=== PATIENT | male | born 1970 | race African-American/Black ===

== ENCOUNTER 2017-01-15 17:42 | Emergency (ER) | payer OTHER ==
--- NOTE | 2017-01-15 17:55 | ED GI/GU/ABDOMINAL COMPLAINT ---
History of Present Illness General Chief Complaint: General Adult Stated Complaint: BIBA RLQ PAIN Source: patient Exam Limitations: no limitations Allergies Coded Allergies: No Known Allergies (01/15/17) Triage Nurses Notes Reviewed? yes HPI: THIS PATIENT is a 46-year-old male who presented to the emergency department today brought in by ambulance for evaluation of right side pain. The patient reported that approximately one hour ago he was sitting down and the pain started abruptly. He reported that the pain is a 10 out of 10, sharp, and radiates to his right lower back into his right lower abdomen. He reported nausea and multiple episodes of diarrhea. He received 10 mg of IV morphine and 4 mg of IV Zofran en route to the hospital. He reported the pain medication did not help his pain, but that his nausea had subsided. He denied any blood in the vomitus. He denied any urinary burning, urgency, frequency, or blood in the urine. He denied any constipation or diarrhea. No blood in the stool. The patient denied any fevers, chills, chest pain, or difficulty breathing. This patient has no prior abdominal surgeries and no history of kidney stones. (DARIAN WALTERS PA-C) Vital Signs & Intake/Output Vital Signs & Intake/Output ED Intake and Output 01/17 0000 01/16 1200 Intake Total Output Total 400 Balance -400 Output, Urine 400 Reconcile Medications Ondansetron (Zofran Odt) 4 MG TAB.RAPDIS 1 TAB SL TID PRN nausea Oxycodone HCl/Acetaminophen (Percocet 5-325 MG Tablet) 5 MG-325 MG TABLET 1 TAB PO BID PRN pain (ALBA DO,JOSHUA Doshi.) Past History Medical History Any Pertinent Medical History? see below for history Surgical History Surgical History: non-contributory Family History Hx Contributory? No (DARIAN WALTERS PA-C) Review of Systems Review of Systems Constitutional: Reports: no symptoms. EENTM: Reports: no symptoms. Respiratory: Reports: no symptoms. Cardiovascular: Reports: no symptoms. GI: Reports: see HPI. Genitourinary: Reports: no symptoms. Musculoskeletal: Reports: no symptoms. Skin: Reports: no symptoms. Neurological/Psychological: Reports: no symptoms. All Other Systems: Reviewed and Negative (DARIAN WALTERS PA-C) Physical Exam Physical Exam Gastrointestinal: HYPOACTIVE BOWEL SOUNDS. tYMPANIC TO PERCUSSION IN ALL 4 QUADRANTS, NONDISTENDED, SOFT. tENDERNESS TO PALPATION DIFFUSELY ACROSS THE ABDOMEN. pOSITIVE mCbURNEY'S POINT TENDERNESS. nEGATIVE rOVSING SIGN. nEGATIVE PSOAS SIGN. nO MASSES OR HERNIAS APPRECIATED. nO REBOUND OR GUARDING Comments: Well-developed well-nourished person in moderate distress HEENT: Normal EENT exam, head normocephalic, moist mucous membranes Pupils equally round and reactive to light. Neck: Supple, no lymphadenopathy Back: Normal inspection. No CVA tenderness Cardiovascular: Regular rate and rhythm with no murmurs, rubs, or gallops Respiratory: No respiratory distress. Breath sounds clear to auscultation bilaterally with no wheezes, rales, rhonchi Extremity: Normal and equal pulses Neuro: Alert oriented x3, cranial nerves II through XII grossly intact. Skin: No appreciable rash on exposed skin, skin is warm and dry. Psych: Mood and affect is normal Core Measures ACS in differential dx? No Severe Sepsis Present: No Septic Shock Present: No (SELENA RAMIREZ,DARIAN) Progress Differential Diagnosis: AAA, AMI, appendicitis, biliary colic, bowel obstruction , colon cancer, cholecystitis, diverticulitis, gastritis, hepatitis, hernia, ischemic bowel, inflamm bowel dis, pancreatitis, PUD/GERD, perforated viscous, pyelonephritis, SBO, ureterolithiasis, urinary retention, urethritis, UTI/pyelo Diagnostic Imaging: Viewed by Me: CT Scan. Discussed w/RAD: CT Scan. Radiology Impression: PATIENT: YOMAIRA GREER PRESENT AGE: 46 PATIENT ACCOUNT NO: [id number] : 68 LOCATION: [facility] ORDERING PHYSICIAN: DARIAN WALTERS PA-C SERVICE DATE: 01/15/17 EXAM TYPE: CAT - CT ABD & PELVIS W IV CONTRAST EXAMINATION: CT ABDOMEN AND PELVIS WITH CONTRAST CLINICAL INFORMATION: Right lower quadrant and right flank pain. COMPARISON: None TECHNIQUE: Multidetector volumetric imaging was performed of the abdomen and pelvis before and after the IV administration of 94 mL of Optiray 320 intravenous contrast. Sagittal and coronal reformatted images were obtained on the technologist's workstation. DLP: 454 mGy-cm FINDINGS: LUNG BASES: There are dependent changes within the lung bases. The imaged heart and pericardium appear unremarkable. LIVER, GALLBLADDER, AND BILIARY TREE: There is a 6 mm hypoattenuating focus within the left lobe of the liver, and more inferiorly also in the left lobe a 1.8 cm structure, also low attenuation. These are statistically cysts or hemangiomas. The liver is normal in size, shape, and attenuation. No biliary ductal dilatation is present. The gallbladder is unremarkable with no evidence of radiopaque gallstones, gallbladder wall thickening, or obvious pericholecystic inflammatory changes. PANCREAS: Unremarkable. SPLEEN: Unremarkable. ADRENAL GLANDS: Unremarkable. KIDNEYS AND URETERS: There is mild right-sided hydroureteronephrosis extending to the right ureterovesicular junction where there is a 2 mm obstructing stone. Skin to stone distance is approximately 15.6 cm. There is a small amount of fluid within the perinephric region. The left kidney demonstrates a 1 to 2 mm nonobstructing stone in the interpolar region. No left-sided hydronephrosis. BLADDER: Partially distended GASTROINTESTINAL TRACT: Few distal colonic diverticula without evidence of diverticulitis. A normal appendix is visualized. The small bowel appear unremarkable. ABDOMINAL WALL: No significant hernia is appreciated. LYMPH NODES: Normal. VASCULAR: Unremarkable. PELVIC VISCERA: Unremarkable. OSSEOUS STRUCTURES: No acute osseous abnormalities. There are 5 nonrib-bearing lumbar type vertebral bodies. Minor spondylosis at L5-S1. No evidence of spondylolysis or scoliosis. IMPRESSION: Obstructing 2 mm stone within the right ureterovesicular junction with associated mild right-sided hydroureteronephrosis. Small amount of right-sided perinephric fluid. Nonobstructing 1 to 2 mm stone in the interpolar region of the left kidney. Two hypoattenuating oval structures within the left lobe of the liver, statistically cysts or hemangiomas. Few distal colonic diverticula without evidence of diverticulitis. Normal appendix. DICTATED BY: YUDELKA WILKINS MD DATE/TIME DICTATED:01/15/171934 SWEEPER DRIVER:DWAIN DATE/TIME TRANSCRIBED:1934 CONFIDENTIAL, DO NOT COPY WITHOUT APPROPRIATE AUTHORIZATION. < Electronically signed in Other Vendor System> SIGNED BY: YUDELKA WILKINS MD 01/15/171958 Initial ED EKG: none Hand-Off Endorsed To: JOSHUA WILLIS DO Endorsed Time: 47 Pending: other Comments: 01/15/2017 7:28:49 PM: I was at the patient's bedside for reevaluation. He is actively retching. Will order 10 mg of IV Reglan. He is also still complaining of pain. Awaiting CT scan results. 01/15/2017 8:30:13 PM: This patient has a 2 mm right-sided ureterolithiasis. I spoke to on-call urologist, Dr. helm. He reported that this patient should be stable to be sent home. I did discuss with him this patient's white blood cell count of 17.2. The patient reported that he is feeling better after 1 mg of Dilaudid and 10 mg of Reglan. No evidence of pyuria on urinalysis. Will empirically treat this patient with ciprofloxacin due to white blood cell count of 17.2. Discussed this patient with Dr. Willis who is in agreement with the plan. (SELENA RAMIREZ,DARIAN) Plan of Care: Orders Procedure Date/time Status CULTURE,URINE 01/15 1755 Active URINALYSIS 01/15 1755 Complete LIPASE 01/15 1755 Complete DIRECT BILIRUBIN 01/15 1755 Complete COMPREHENSIVE METABOLIC PANEL 01/15 1755 Complete CBC WITHOUT DIFFERENTIAL 01/15 1755 Complete AMYLASE 01/15 1755 Complete TYPE & SCREEN (NOT X-MATCH) 01/15 1755 Complete Laboratory Tests 01/15/175: Urine Color YEL, Urine Clarity CLEAR, Urine pH 6.0, Ur Specific Ellinger 1.020, Urine Protein 100 H, Urine Ketones TRACE H, Urine Nitrite NEG, Urine Bilirubin NEG, Urine Urobilinogen 0.2, Ur Leukocyte Esterase NEG, Ur Microscopic SEDIMENT EXAMINED, Urine RBC RARE, Ur Epithelial Cells RARE, Urine Mucus RARE, Urine Hemoglobin TRACE-INTACT H, Urine Glucose 250 H 01/15/17 1816: Anion Gap 16, Estimated GFR > 60, BUN/Creatinine Ratio 12.7, Glucose 156 H, Calcium 9.5, Total Bilirubin 0.5, Direct Bilirubin 0.2, AST 26, ALT 49, Alkaline Phosphatase 65, Total Protein 7.7, Albumin 4.3, Globulin 3.4, Albumin/Globulin Ratio 1.3, Amylase 66, Lipase 25, CBC w Diff NO MAN DIFF REQ, RBC 5.23, MCV 85.3 , MCH 28.4, RDW 13.5, MPV 9.6, Gran % 82.0 H, Lymphocytes % 10.3 L, Monocytes % 7.2, Eosinophils % 0.5, Basophils % 0 L, Absolute Granulocytes 14.1 H, Absolute Lymphocytes 1.8, Absolute Monocytes 1.2 H, Absolute Eosinophils 0.1, Absolute Basophils 0, PUBS MCHC 33.3 Microbiology 01/15 2205 URINE ROUT: Urine Culture - RECD Departure Departure Disposition: HOME OR SELF CARE Condition: Stable Clinical Impression Primary Impression: Ureterolithiasis Referrals: EFRAÍN CAO,CINDY Nova Additional Instructions: Take medication for pain as prescribed. Take medication for nausea as prescribed. Please rest and be sure to stay hydrated. Strain your urine. Please call to schedule a follow-up appointment with the urologist's information has been provided to you in this packet. Return for any worsening symptoms or concerns. Departure Forms: Customer Survey General Discharge Information Prescriptions: Current Visit Scripts Ondansetron (Zofran Odt) 1 TAB SL TID PRN nausea #10 TAB Oxycodone HCl/Acetaminophen (Percocet 5-325 MG Tablet) 1 TAB PO BID PRN pain #10 TAB (DARIAN WALTERS PA-C) PA/[employer] AND [employer]PPLIES SALESPERSON Co-Sign Statement Statement: ED Attending supervision documentation- [] I saw and evaluated the patient. I have also reviewed all the pertinent lab results and diagnostic results. I agree with the findings and the plan of care as documented in the PA's/PETS AND PET SUPPLIES SALESPERSON's documentation. [X] I have reviewed the ED Record and agree with the PA's/PETS AND PET SUPPLIES SALESPERSON's documentation. [] Additions or exceptions (if any) to the PAs/PETS AND PET SUPPLIES SALESPERSON's note and plan are summarized below: [] (JOSHUA WILLIS DO)
[2017-01-15 18:30] LABS: ABSOLUTE BASOPHIL COUNT 0 /CUMM (0.0-0.2); ABSOLUTE EOSINOPHIL COUNT 0.1 /CUMM (0.0-0.7); ABSOLUTE GRANULOCYTE CT 14.1 /CUMM (1.4-6.5); ABSOLUTE LYMPH COUNT 1.8 /CUMM (1.2-3.4); ABSOLUTE MONOCYTE COUNT 1.2 /CUMM (0.10-0.60); BASOPHIL % 0 % (0.0-2.0); EOSINOPHIL % 0.5 % (0-5); HEMATOCRIT 44.6 % (42-52); MEAN CORPUSCULAR HGB 28.4 PG (27.0-31.0); MEAN CORPUSCULAR HGB CONC 33.3 G/DL (33.0-37.0); MEAN CORPUSCULAR VOLUME 85.3 FL (80.0-94.0); MEAN PLATELET VOLUME 9.6 FL (7.4-10.4); PLATELET COUNT 200 /CUMM (130-400); RBC DISTRIBUTION WIDTH 13.5 % (11.5-14.5); RED BLOOD CELL CT 5.23 /CUMM (4.70-6.10); WHITE BLOOD CELL COUNT 17.2 /CUMM (4.8-10.8)
--- NOTE | 2017-01-15 19:59 | CT SCAN REPORT ---
EXAMINATION: CT ABDOMEN AND PELVIS WITH CONTRAST CLINICAL INFORMATION: Right lower quadrant and right flank pain. COMPARISON: None TECHNIQUE: Multidetector volumetric imaging was performed of the abdomen and pelvis before and after the IV administration of 94 mL of Optiray 320 intravenous contrast. Sagittal and coronal reformatted images were obtained on the technologist's workstation. DLP: 454 mGy-cm FINDINGS: LUNG BASES: There are dependent changes within the lung bases. The imaged heart and pericardium appear unremarkable. LIVER, GALLBLADDER, AND BILIARY TREE: There is a 6 mm hypoattenuating focus within the left lobe of the liver, and more inferiorly also in the left lobe a 1.8 cm structure, also low attenuation. These are statistically cysts or hemangiomas. The liver is normal in size, shape, and attenuation. No biliary ductal dilatation is present. The gallbladder is unremarkable with no evidence of radiopaque gallstones, gallbladder wall thickening, or obvious pericholecystic inflammatory changes. PANCREAS: Unremarkable. SPLEEN: Unremarkable. ADRENAL GLANDS: Unremarkable. KIDNEYS AND URETERS: There is mild right-sided hydroureteronephrosis extending to the right ureterovesicular junction where there is a 2 mm obstructing stone. Skin to stone distance is approximately 15.6 cm. There is a small amount of fluid within the perinephric region. The left kidney demonstrates a 1 to 2 mm nonobstructing stone in the interpolar region. No left-sided hydronephrosis. BLADDER: Partially distended GASTROINTESTINAL TRACT: Few distal colonic diverticula without evidence of diverticulitis. A normal appendix is visualized. The small bowel appear unremarkable. ABDOMINAL WALL: No significant hernia is appreciated. LYMPH NODES: Normal. VASCULAR: Unremarkable. PELVIC VISCERA: Unremarkable. OSSEOUS STRUCTURES: No acute osseous abnormalities. There are 5 nonrib-bearing lumbar type vertebral bodies. Minor spondylosis at L5-S1. No evidence of spondylolysis or scoliosis. IMPRESSION: Obstructing 2 mm stone within the right ureterovesicular junction with associated mild right-sided hydroureteronephrosis. Small amount of right-sided perinephric fluid. Nonobstructing 1 to 2 mm stone in the interpolar region of the left kidney. Two hypoattenuating oval structures within the left lobe of the liver, statistically cysts or hemangiomas. Few distal colonic diverticula without evidence of diverticulitis. Normal appendix.
[2017-01-15] MEDS ORDERED: PERCOCET 5-3251 EACH PO (22:50)
[2017-01-15] MEDS ORDERED: ZOFRAN ODT4 M1 SL (22:50)
[2017-01-16 00:54] VITALS: BP 139/83
== END 2017-01-16 01:48 ==
LOC: ERH 17:42
PROVIDERS: Physician Assistant
DX: N20.1 Calculus of ureter (principal)
CPT/HCPCS: 36415; 74177; 81001; 87086; 96372; 96374; 96375; J1885; J2550; J2765